=== PATIENT | female | born 1955 | race Caucasian/White ===

== ENCOUNTER 2017-01-16 12:07 | Inpatient (IN) | payer MEDICARE, MEDICAID ==
--- NOTE | 2017-01-16 12:14 | ED Physician Chart ---
Chief Complaint/HPI - Patient Information Date Seen:: 01/16/17 Time Seen:: 12:14 Chief Complaint:: Constipated for about 5 days. History of Present Illness:: Brought in by caregiver Aiden for the above reason. Pt is not in distress and denies any abdominal pain at the present. Pt has h/o mental retardation. She does not cooperate fully; thus, H & P are limited. Allergies:: Allergies Allergy/AdvReac Type Severity Reaction Status Date / Time No Known Allergies Allergy Verified 06/10/16 17:34 Vitals:: see Nurse Note. Historian:: Patient, Medical Records (from pt's assisted.), Other (caregiver Aiden) Family MD/PCP:: Dr. Weiss. LMP:: Postmenopausal Review:: Nurse's Note Reviewed, Transfer documents Reviewed Review of Systems - Review of Systems General/Constitutional: Other (Pt does not cooperate for ROS.) Past Medical History - Past Medical History Past Medical History: Seizures, Dementia Family History: Other (Pt does not cooperate to provide info on FHx.) Social History: Other (Pt does not cooperate to provide info on SHx.) Surgical History: other (Pt does not cooperate to provide info on Surgical Hx.) Psychiatricy History: Dementia Medication: Reviewed Family Medical History - Family Member Mother History Unknown: Yes Physical Exam - Physical Examination General/Constitutional: Awake, Well-developed, well-nourished, Alert, No distress, Non-toxic appearing Other Gen/Cons comments:: Breathes comfortably. Responds to voice and tactile stimuli. Head: Atraumatic Eyes: Lids, conjuctiva normal, PERRL, EOMI Skin: Nl inspection, No rash, No skin lesions, No ecchymosis, Well hydrated, No lymphadenopathy Neck: Nontender, Full ROM w/o pain, No JVD, No nuchal rigidity, No mass, No stridor Respiratory: Nl effort/Exclusion, Clear to Auscultation, No Wheeze/Rhonchi/Rales Cardio Vascular: RRR, No murmur, gallop, rubs, NL S1 S2 GI: No tenderness/rebounding/guarding, No organomegaly, No hernia, Normal BS's, No mass/bruits, No McBurney tenderness Other GI comments:: Obese but soft. Vague discomfort in lower abdomen with deep palpation. Rectal exam performed in the presence of female nurse Blanca. Large quantity of yellow hard stool in rectum. No mass or other abnormality. Extremities: No edema Other Neuro/Psych comments:: Alert and responsive to voice and tactile stimuli. Spontaneous movements noticed in all 4 extremities. Pt does not cooperate for full neurological exam. Misc: normal gait, Normal back, No paraspinal tenderness Labs/Radiology/EKG Results - Lab Results Results: Laboratory Tests 01/16/17 01/16/17 01/16/17 17:20 17:20 17:20 WBC 7.8 D RBC 3.06 L Hgb 10.1 L Hct 29.6 L MCV 96.9 MCH 32.9 H MCHC Differential 33.9 RDW 12.8 Plt Count 247 MPV 8.6 Neutrophils % 76.6 Lymphocytes % 16.5 L Monocytes % 5.8 Eosinophils % 0.9 Basophils % 0.2 PT 11.0 INR 1.06 PTT (Actin FS) 22.3 L Sodium 131 L Potassium 4.0 Chloride 100 Carbon Dioxide 21.3 Anion Gap 13.7 BUN 6 L Creatinine 0.8 Est GFR ( Amer) > 60.0 Est GFR (Non-Af Amer) > 60.0 BUN/Creatinine Ratio 7.5 Glucose 111 H Calcium 9.1 Total Bilirubin 0.3 AST 15 ALT 8 Alkaline Phosphatase 107 H Total Protein 6.4 Albumin 3.6 L Globulin 2.8 Albumin/Globulin Ratio 1.3 Amylase 18 L Lipase 54 Urine Source Urine Color Urine Clarity Urine pH Ur Specific [place] Urine Protein Urine Glucose (UA) Urine Ketones Urine Blood Urine Nitrate Urine Bilirubin Urine Urobilinogen Ur Leukocyte Esterase Urine RBC Urine WBC Ur Epithelial Cells Urine Bacteria 01/16/17 17:40 WBC RBC Hgb Hct MCV MCH MCHC Differential RDW Plt Count MPV Neutrophils % Lymphocytes % Monocytes % Eosinophils % Basophils % PT INR PTT (Actin FS) Sodium Potassium Chloride Carbon Dioxide Anion Gap BUN Creatinine Est GFR ( Amer) Est GFR (Non-Af Amer) BUN/Creatinine Ratio Glucose Calcium Total Bilirubin AST ALT Alkaline Phosphatase Total Protein Albumin Globulin Albumin/Globulin Ratio Amylase Lipase Urine Source CLEAN C Urine Color YELLOW Urine Clarity CLEAR Urine pH 7.0 Ur Specific [place] 1.015 Urine Protein NEGATIVE Urine Glucose (UA) NEGATIVE Urine Ketones NEGATIVE Urine Blood SMALL H Urine Nitrate NEGATIVE Urine Bilirubin NEGATIVE Urine Urobilinogen 0.2 Ur Leukocyte Esterase NEGATIVE Urine RBC 5-10 H Urine WBC 0-2 Ur Epithelial Cells OCCASIONAL Urine Bacteria FEW - Radiology Results Results: Acute abdominal series: Based on my interpretation, a lot of stool. Few air fluid levels c/w ileus. No acute obstruction or perforation. Official report is pending. ED Septic Shock - . Is Septic Shock (SBP<90, OR Lactate>4 mmol\L) present?: No Reassessment (Disposition) - Reassessment Reassessment:: 1705 Pt has been repeatedly evaluated. Pt has had good bowel movements but still has abdominal pain diffusely. Will do abdominal series and lab studies. 2029 Pt remains stable. Her abdominal pain has subsided. Remaining lab and X- rays just became available. Case was discussed with Dr. Haegn with pertinent H & P, lab, and radiological findings reviewed. Pt is to be admitted to [facility] under his care. Reassessment Condition:: Improved - Diagnosis Diagnosis:: Fecal impaction, r/o early bowel obstruction, stable. h/o dementia. Stable. h/o seizure disorder. Stable. Mild anemia. Stable Mild hyperglycemia. Stable. Mild microscopic hematuria. Stable. - Patient Disposition Admitted to:: Med/Surg Admitting Medical Physician:: Gerardo Hagen Time:: 20:35 Condition at Disposition:: Stable, Improved ED Discharge Plan - Patient Disposition Admit/Discharge/Transfer: Acute Care w/in this hosp
[2017-01-16] MEDS ORDERED: Fleet Enema 135 mL RC ONE ×2 (12:33→15:15)
[2017-01-16 17:27] LABS: % BASOPHILS 0.2 % (0.0-2.0); % EOSINOPHILS 0.9 % (0.0-5.0); % LYMPHOCYTES 16.5 % (20.0-50.0); % MONOCYTES 5.8 % (2.0-10.0); % NEUTROPHILS 76.6 % (40.0-80.0); HEMATOCRIT 29.6 % (35.0-45.0); HEMOGLOBIN 10.1 gm/dL (11.7-15.5); MEAN CELL VOLUME 96.9 fl (81-100); MEAN CORPUSCULAR HEMOGLOBIN 32.9 pg (27.0-31.0); MEAN CORPUSCULAR HGB CONC 33.9 pg (28.0-36.0); MEAN PLATELET VOLUME 8.6 fl; NEUTROPHILE ABSOLUTE 5.9 Th/cmm (1.8-8.0); PLATELET COUNT 247 Th/cmm (150-400); RED BLOOD COUNT 3.06 Mil/cmm (3.80-5.10); RED CELL DISTRIBUTION WIDTH 12.8 % (11.5-20.0)
[2017-01-16 17:29] LABS: WHITE BLOOD COUNT 7.8 Th/cmm (4.8-10.8)
[2017-01-16 17:38] LABS: INR 1.06 (0.5-1.4)
[2017-01-16 17:42] LABS: ALB/GLOB RATIO 1.3 (1.0-1.8); ALKALINE PHOSPHATASE 107 U/L (34-104); AMYLASE SERUM 18 U/L (29-103); ANION GAP 13.7 (7.0-16.0); BILIRUBIN,TOTAL 0.3 mg/dL (0.3-1.0); BUN - UREA NITROGEN 6 mg/dL (7-25); BUN/CREATININE RATIO 7.5; CALCIUM SERUM 9.1 mg/dL (8.6-10.3); CARBON DIOXIDE 21.3 mEq/L (21.0-31.0); CHLORIDE 100 mEq/L (98-107); CREATININE - SERUM 0.8 mg/dL (0.6-1.2); GLUCOSE 111 mg/dL (70-105); LIPASE 54 U/L (11-82); SGOT 15 U/L (13-39); SGPT/ALT 8 U/L (7-52); SODIUM SERUM 131 mEq/L (136-145)
[2017-01-16 17:54] LABS: URINE BILIRUBIN NEGATIVE (NEGATIVE); URINE BLOOD SMALL (NEGATIVE); URINE COLOR YELLOW; URINE GLUCOSE (UA) NEGATIVE (NEGATIVE); URINE KETONE NEGATIVE (NEGATIVE); URINE PROTEIN NEGATIVE (NEGATIVE); URINE UROBILINOGEN 0.2 E.U./dL (0.2 - 1.0)
[2017-01-16 17:55] LABS: URINE BACTERIA FEW /hpf (NONE SEEN); URINE EPITHELIAL CELLS OCCASIONAL /lpf (FEW); URINE WBC 0-2 /hpf (0-5)
--- NOTE | 2017-01-16 20:52 | Admit Criteria Form ---
Admit Criteria Forms - Admit Criteria Diagnosis: ABDOMINAL PAIN Clinical Indications for Admission to Inpatient Care (Place 'X' for any and all applicable criteria): Admission is indicated for ANY ONE of the following(1)(2)(3)(4)(5): [X]I. Inpatient admission required rather than observation care (Also use Abdominal Pain: Observation Care, as appropriate) because of ANY ONE of the following: [ ]a) Severe pain requiring acute inpatient management [X]b) Identification of etiology/finding that requires inpatient care (eg, aortic dissection, free air) [ ]c) Absent bowel sounds with complete ileus(6) [ ]d) Suspected toxic megacolon [ ]e) Severe electrolyte abnormalities requiring inpatient care [ ]f) High fever or infection requiring inpatient admission as indicated by ANY ONE of following(7)(8): [ ] i) Appropriate outpatient or observational care antimicrobial treatment unavailable, not effective, or not feasible [ ] ii) Documented bacteremia [ ] iii) Temperature > 104.9 degrees F (oral) [ ] iv) T >103.1 F (oral) or < 96.8 F(rectal) that does not respond to all emergency treatment measures [ ]g) Signs of intestinal obstruction [B] [ ]h) Hemodynamic instability [ ]i) IV fluid to replace significant ongoing losses (greater than 3 L/m2 per day) (12)(13) [ ]j) Percutaneous or open drainage (eg, abscess, biliary tract ) procedures [ ]k) Parenteral nutrition regimen that must be implemented on inpatient basis [ ]l) Other condition,treatment or monitoring requiring inpatient admission. [ ]II. Peritoneal signs present [ ]III. Surgery needed that cannot be performed on an ambulatory basis. [ ]IV. Evaluation requires patient to not eat or drink for extended period ( eg, more than 24 hours). [ ]V. Contraindications and/or Inappropriate clinical situations for Observational Care in patients with abdominal pain, when ANY ONE of the following is required: [ ]a) Thorough evaluation is required to prevent catastrophic events due to delays in diagnosing (e.g.Mesenteric ischemia) 1,3 [ ]b) Patient with severe pathology or with chronic symptoms unlikely to improve in the ED stay (3) [ ]. General contraindications and/or Inappropriate clinical situations for Observational Care in patients with abdominal pain, when ANY ONE of the following is required: [ ]a) Prediction of prolongation of LOS based on ANY ONE of the following may be considered as a contraindication for observational care 2, 3, 4, 5, 6, 7, 8, 9, 10, 11 [ ]i) Age > 65 yrs. [ ]ii) Patient arriving by ambulance [ ]iii) Patient with high acuity [ ]iv) Patient requiring vital sign monitoring [ ]v) Patient on IV medication [ ]b) Systolic blood pressures 180mmHg 3,12 [ ]c) Patient with altered mental status including delirium and other alteration of consciousness, (3) [ ]d) Patient whose discharge disposition will be to a shelter home or rehabilitation home should not be managed in Emergency Department Observation Unit. CMS rule requires 3 days hospital stay before such placement.3,13 [ ]e) Patient with failure to thrive due to broad array of etiologies 3,16,17 [ ]f) Inability to ambulate 3,14 Extended stay beyond goal length of stay may be needed for(2)(3): [ ]a) Persistent abdominal pain with suspected intra-abdominal process [ ]b) Diagnosed condition requiring continued stay (e.g., pancreatitis, complicated diverticulitis) [ ]c) Surgery (e.g., colectomy) The original [facility] content created by [employer] has been revised. The portions of the content which have been revised are identified through the use of italic text or in bold, and [employer] has neither reviewed nor approved the modified material.All other unmodified content is copyright [facility] [employer]. Please see references footnoted in the original [facility] edition 2016 Admit Criteria Met?: Yes
[2017-01-16] MEDS ORDERED: Haldol Oral Sol.(concentrate) 10 mg/5 mL Udc PO PRN (21:39)
[2017-01-16] MEDS ORDERED: Lactulose 10 Gm/15 mL 30mL UDC PO PRN (22:15)
[2017-01-16] MEDS: Sodium Chloride 0.9% 1,000 ML IV SCH (22:28)
[2017-01-17 03:32] VITALS: BP 130/70
[2017-01-17 05:50] LABS: % BASOPHILS 1.4 % (0.0-2.0); % EOSINOPHILS 0.6 % (0.0-5.0); % LYMPHOCYTES 12.3 % (20.0-50.0); % MONOCYTES 7.4 % (2.0-10.0); % NEUTROPHILS 78.3 % (40.0-80.0); HEMATOCRIT 29.6 % (35.0-45.0); HEMOGLOBIN 10.1 gm/dL (11.7-15.5); MEAN CELL VOLUME 96.7 fl (81-100); MEAN CORPUSCULAR HEMOGLOBIN 33.1 pg (27.0-31.0); MEAN CORPUSCULAR HGB CONC 34.2 pg (28.0-36.0); MEAN PLATELET VOLUME 8.8 fl; NEUTROPHILE ABSOLUTE 5.9 Th/cmm (1.8-8.0); PLATELET COUNT 222 Th/cmm (150-400); RED BLOOD COUNT 3.06 Mil/cmm (3.80-5.10); RED CELL DISTRIBUTION WIDTH 12.9 % (11.5-20.0); WHITE BLOOD COUNT 7.4 Th/cmm (4.8-10.8)
[2017-01-17 06:29] LABS: ALB/GLOB RATIO 1.2 (1.0-1.8); ALKALINE PHOSPHATASE 98 U/L (34-104); ANION GAP 12.5 (7.0-16.0); BILIRUBIN,TOTAL 0.4 mg/dL (0.3-1.0); BUN - UREA NITROGEN 8 mg/dL (7-25); CALCIUM SERUM 8.5 mg/dL (8.6-10.3); CARBON DIOXIDE 21.7 mEq/L (21.0-31.0); CHLORIDE 105 mEq/L (98-107); CREATININE - SERUM 0.8 mg/dL (0.6-1.2); GLUCOSE 87 mg/dL (70-105); POTASSIUM SERUM 4.2 mEq/L (3.5-5.1); SGOT 16 U/L (13-39); SGPT/ALT 7 U/L (7-52); SODIUM SERUM 135 mEq/L (136-145)
[2017-01-17] MEDS ORDERED: Pantoprazole 40 mg EC Tab PO SCH (07:30)
--- NOTE | 2017-01-17 08:43 | General Progress Note ---
Subjective - Review of Systems Service Date: 01/17/17 Subjective: Confused Objective - Results Result Diagrams: 01/17/17 05:05 01/17/17 05:05 Recent Labs: Laboratory Last Values WBC 7.4 Th/cmm (4.8-10.8) 01/17/17 05:05 RBC 3.06 Mil/cmm (3.80-5.10) L 01/17/17 05:05 Hgb 10.1 gm/dL (11.7-15.5) L 01/17/17 05:05 Hct 29.6 % (35.0-45.0) L 01/17/17 05:05 MCV 96.7 fl (81-100) 01/17/17 05:05 MCH 33.1 pg (27.0-31.0) H 01/17/17 05:05 MCHC Differential 34.2 pg (28.0-36.0) 01/17/17 05:05 RDW 12.9 % (11.5-20.0) 01/17/17 05:05 Plt Count 222 Th/cmm (150-400) 01/17/17 05:05 MPV 8.8 fl 01/17/17 05:05 Neutrophils % 78.3 % (40.0-80.0) 01/17/17 05:05 Lymphocytes % 12.3 % (20.0-50.0) L 01/17/17 05:05 Monocytes % 7.4 % (2.0-10.0) 01/17/17 05:05 Eosinophils % 0.6 % (0.0-5.0) 01/17/17 05:05 Basophils % 1.4 % (0.0-2.0) 01/17/17 05:05 PT 11.0 SECONDS (9.5-11.5) 01/16/17 17:20 INR 1.06 (0.5-1.4) 01/16/17 17:20 PTT (Actin FS) 22.3 SECONDS (26.0-38.0) L 01/16/17 17:20 Sodium 135 mEq/L (136-145) L 01/17/17 05:05 Potassium 4.2 mEq/L (3.5-5.1) 01/17/17 05:05 Chloride 105 mEq/L (98-107) 01/17/17 05:05 Carbon Dioxide 21.7 mEq/L (21.0-31.0) 01/17/17 05:05 Anion Gap 12.5 (7.0-16.0) 01/17/17 05:05 BUN 8 mg/dL (7-25) 01/17/17 05:05 Creatinine 0.8 mg/dL (0.6-1.2) 01/17/17 05:05 Est GFR ( Amer) > 60.0 ml/min (>90) 01/17/17 05:05 Est GFR (Non-Af Amer) > 60.0 ml/min 01/17/17 05:05 BUN/Creatinine Ratio 10.0 01/17/17 05:05 Glucose 87 mg/dL (70-105) 01/17/17 05:05 Calcium 8.5 mg/dL (8.6-10.3) L 01/17/17 05:05 Total Bilirubin 0.4 mg/dL (0.3-1.0) 01/17/17 05:05 AST 16 U/L (13-39) 01/17/17 05:05 ALT 7 U/L (7-52) 01/17/17 05:05 Alkaline Phosphatase 98 U/L (34-104) 01/17/17 05:05 Total Protein 5.6 gm/dL (6.0-8.3) L 01/17/17 05:05 Albumin 3.1 gm/dL (3.7-5.3) L 01/17/17 05:05 Globulin 2.5 gm/dL 01/17/17 05:05 Albumin/Globulin Ratio 1.2 (1.0-1.8) 01/17/17 05:05 Amylase 18 U/L (29-103) L 01/16/17 17:20 Lipase 54 U/L (11-82) 01/16/17 17:20 Urine Source CLEAN C 01/16/17 17:40 Urine Color YELLOW 01/16/17 17:40 Urine Clarity CLEAR (CLEAR) 01/16/17 17:40 Urine pH 7.0 01/16/17 17:40 Ur Specific [place] 1.015 (1.005-1.030) 01/16/17 17:40 Urine Protein NEGATIVE mg/dL (NEGATIVE) 01/16/17 17:40 Urine Glucose (UA) NEGATIVE mg/dL (NEGATIVE) 01/16/17 17:40 Urine Ketones NEGATIVE mg/dL (NEGATIVE) 01/16/17 17:40 Urine Blood SMALL (NEGATIVE) H 01/16/17 17:40 Urine Nitrate NEGATIVE (NEGATIVE) 01/16/17 17:40 Urine Bilirubin NEGATIVE (NEGATIVE) 01/16/17 17:40 Urine Urobilinogen 0.2 E.U./dL (0.2 - 1.0) 01/16/17 17:40 Ur Leukocyte Esterase NEGATIVE (NEGATIVE) 01/16/17 17:40 Urine RBC 5-10 /hpf (0-5) H 01/16/17 17:40 Urine WBC 0-2 /hpf (0-5) 01/16/17 17:40 Ur Epithelial Cells OCCASIONAL /lpf (FEW) 01/16/17 17:40 Urine Bacteria FEW /hpf (NONE SEEN) 01/16/17 17:40 - Physical Exam Vitals and I&O: Vital Signs Temp 99.1 F 01/17/17 03:49 Pulse 102 01/17/17 03:49 Resp 20 01/17/17 03:49 BP 135/71 01/17/17 04:30 Pulse Ox 98 01/17/17 03:49 Intake & Output 01/16/17 01/17/17 01/17/17 18:59 06:59 18:59 Other: # Voids 3 # Bowel Movements 3 Stool Characteristics Liquid Active Medications: Current Medications Acetaminophen (Tylenol) 650 mg PO Q6H PRN PRN Reason: Pain or Fever >101 Stop: 03/17/17 21:18 Cyanocobalamin (Vitamin B12) 1,000 mcg PO DAILY [facility] Stop: 03/18/17 08:59 Sodium Chloride (Nacl 0.9%) 1,000 mls @ 75 mls/hr IV .[id number] [place] Stop: 03/17/17 21:18 Last Admin: 01/16/17 22:28 Dose: 75 mls/hr Influenza Virus Vaccine (Fluarix) 0.5 ml IM .ONCE ONE Stop: 01/17/17 10:55 Ketorolac Tromethamine (Toradol) 30 mg IVP Q6HR PRN PRN Reason: Pain (Moderate) Stop: 03/17/17 21:20 Lactulose (Cephulac) 20 gm PO BID PRN PRN Reason: Constipation Stop: 03/17/17 22:14 Levetiracetam (Keppra) 500 mg PO BID [facility] Stop: 03/18/17 08:59 Miscellaneous (Fluticasone/Salmeterol [Advair 250-50 Diskus]) 1 each IH BID [facility] Stop: 03/18/17 08:59 Miscellaneous (Mag Hydrox/Al Hydrox/Simeth [Antacid Anti-Gas Liquid]) 5 ml PO BID [facility] Stop: 03/18/17 08:59 Multivitamins/Vitamin C (Theragran) 1 tab PO DAILY [facility] Stop: 03/18/17 08:59 Olanzapine (Zyprexa) 10 mg PO HS [place] PRN Reason: Protocol Stop: 03/18/17 20:59 Ondansetron HCl (Zofran) 4 mg IV Q6H PRN PRN Reason: Nausea / Vomiting Stop: 03/17/17 21:18 Pantoprazole Sodium (Protonix) 40 mg PO QDAC [facility] Stop: 03/18/17 07:29 Pneumococcal Polyvalent Vaccine (Pneumovax) 0.5 ml IM .ONCE ONE Stop: 01/17/17 10:55 Tramadol HCl (Ultram) 50 mg PO BID [facility] Stop: 03/18/17 08:59 General: Alert, Other (Confused) HEENT: Atraumatic Neck: Supple Cardiovascular: Regular rate Lungs: Clear to auscultation Abdomen: Other (BS present, soft, pain at palpation in left colon) Extremities: Other (No edema) Neurological: Other (Non ambulatory) Skin: Other Psych/Mental Status: Other (Confused) - Procedures Procedures: Procedures Procedure Code Date CLOSURE SKIN & SUBCUTANEOUS NEC 86.59 11/28/05 COLONOSCOPY 45.23 12/06/96 DIAGNOSTIC COLONOSCOPY 47462 12/06/96 DIAGNOSTIC SIGMOIDOSCOPY 57963 04/21/98 EGD DIAGNOSTIC BRUSH WASH 83510 06/10/16 ELECTROCARDIOGRAPH MONIT 89.54 12/10/95 HEMORRHOIDECTOMY 49.46 04/21/98 INSPECTION OF UPPER INTESTINAL TRACT, ENDO [id number] 06/10/16 LINEAR REP LID LACER 08.81 07/04/14 NEBULIZER THERAPY 93.94 12/10/95 REMOVE INT/EXT HEM 1 GROUP 13030 04/21/98 RIGID PROCTOSIGMOIDOSCOPY 48.23 04/21/98 RPR S/N/AX/GEN/TRNK2.6-7.5CM 30778 11/28/05 TETANUS TOXOID ADMINIST 99.38 07/04/14 Assessment/Plan - Problem List Patient Problems: All Active Problems Anemia (Acute) D64.9 Dizziness (Acute) R42 Hyposmolality and/or hyponatremia (Acute) E87.1 Labyrinthitis (Acute) H83.09 NAUSEA AND VOMITING (Acute 06/10/16) - Assessment Assessment: Patient is awake, calm, confused not oriented. Patient already have 3 bowel movement during night. Dx: SBO vs [place], MR, dementia, anemia, hyponatremia. - Plan Plan: Patient in NS, will change to clear liquid diet, KUB is requested.
[2017-01-17] MEDS ORDERED: AL HYDROX PO SCH (09:00)
[2017-01-17] MEDS ORDERED: MAG HYDROX PO SCH (09:00)
[2017-01-17] MEDS ORDERED: SIMETH PO SCH (09:00)
[2017-01-17] MEDS ORDERED: FLUTICASONE IH SCH (09:00)
[2017-01-17] MEDS ORDERED: SALMETEROL IH SCH (09:00)
[2017-01-17] MEDS: Multivitamin Tab PO SCH (09:03)
--- NOTE | 2017-01-17 09:55 | Diagnostic Imaging Report ---
Abdominal series (2 views) HISTORY: Pain The exam demonstrates stool-filled nondilated large bowel with an otherwise nonspecific appearance. Density noted in the lower pelvis that may be related to distended urinary bladder. IMPRESSION: 1. Stool-filled nondilated large bowel to an otherwise nonspecific appearance 2. Density in the pelvic region that may be associated with a distended urinary bladder. Clinical correlation needed.
[2017-01-17] MEDS ORDERED: Diatrizoate Meglumine/Diatri 30 mL Sol RC ONE (10:14)
--- NOTE | 2017-01-17 10:53 | History & Physical ---
CHIEF COMPLAINT: Intestinal constipation. HISTORY OF PRESENT ILLNESS: This is the case of a 61-year-old white female who has a history of mental retardation. The patient is brought by the caregiver stating that for 5 days, the patient has been not able to evacuate. The patient was brought to Emergency Room for evaluation and treatment. During evaluation in the ER, abdominal x-rays were done and by emergency doctor it was found that the patient has possible SBO versus ileus paralytics. The patient was admitted for further treatment. PAST MEDICAL HISTORY: The patient has past medical history of seizures and dementia. SOCIAL HISTORY: The patient is a permanent resident of a [facility]. It is not clear at this moment ____ from the [facility] or home. PAST SURGICAL HISTORY: Not available. PSYCHIATRIC HISTORY: Dementia. FAMILY HISTORY: Unremarkable. MEDICATIONS: Reviewed. REVIEW OF SYSTEMS: Information was not obtained secondary to the patient's mental condition. PHYSICAL EXAMINATION: GENERAL: Does reveal a fairly nourished and developed white female, awake, alert, in no acute distress. The patient is not able to respond or answer in the right way. HEENT: Head is atraumatic and normocephalic. Eyes: Pupils reactive to light. Nose: No evidence of nasal obstruction. Ears: No evidence of any discharge. Mouth: Fairly kept. LUNGS: Bilateral air entry. HEART: Regular and rhythmic. ABDOMEN: Soft, some tenderness. Bowel sound is decreased. EXTREMITIES: No edema. NEUROLOGICAL: The patient is awake, alert, confused, not oriented. Neurological examination was not completed secondary to the patient's mental condition. IMPRESSION: 1. Small bowel obstruction versus ileus paralytics. 2. Anemia. 3. Hyponatremia. 4. Dementia. 5. Seizure disorder. PLAN: 1. The patient will be admitted in the Medical Surgical Floor. 2. IV normal saline. 3. Continue on home medications. 4. NPO. 5. Consult with GI. 6. CBC, CMP at a.m. JOB# [id number]
[2017-01-17] MEDS ORDERED: Influenza Vaccine 0.5 mL Syr IM ONE (10:54)
[2017-01-17] MEDS ORDERED: Pneumococcal Vaccine 0.5 mL Vial IM ONE (10:54)
[2017-01-17] MEDS: Sodium Chloride 0.9% 1,000 ML IV SCH (11:52)
--- NOTE | 2017-01-17 16:20 | Diagnostic Imaging Report ---
KUB abdominal film (portable) HISTORY: Pain Exam limited due to difficulty in patient positioning. The periphery of the right abdomen is off the [id number]. Distended loops of stool-filled large bowel noted. Increased density in the lower pelvis may be associated with a distended urinary bladder. Old pelvic fractures noted. IMPRESSION: 1. Distended stool-filled large bowel 2. Old pelvic fractures 3. Increased density in the lower pelvis that may be associated with a distended urinary bladder.
--- NOTE | 2017-01-17 16:20 | Diagnostic Imaging Report ---
CT scan of the abdomen and pelvis without intravenous contrast HISTORY pain Total DLP equals 392 CTDI equals Axial sections were obtained from the xiphoid process down to the pubic symphysis. Limited sections below the diaphragm demonstrate a relatively large retrocardiac hiatal hernia with the gastric fundus above the diaphragm. The liver exhibits a normal size with a homogeneous parenchyma. No focal lesions. The spleen appears normal. No focal abdomen is seen in the region of the pancreas. Subtle punctate nonobstructing bilateral renal calculi are seen. The exam demonstrates rather markedly dilated stool-filled large bowel as well as a distended stool-filled rectum. Findings are consistent with changes of constipation. Nondilated small bowel is seen. The remainder of the pelvis demonstrates preservation of normal fat planes. No abnormal soft tissue masses or abnormal fluid collections. Old left sacral fracture along with old fractures involving the lower pelvis also noted. Degenerative changes throughout the spine with partial compression involving the body of L2. IMPRESSION: 1. Dilated distended stool-filled large bowel along with a distended thick-walled stool-filled rectum. Findings are consistent with changes of constipation. 2. Relatively large hiatal hernia with gastric fundus above the diaphragm 3. Chronic pulmonary infiltrate within the left lower lobe unchanged from a prior study of 06/10/2016 4. Old pelvic fractures including findings consistent with old left sacral fracture. 5. Degenerative changes throughout the spine with partial compression involving the body of L2.
--- NOTE | 2017-01-17 22:29 | Consultation ---
REFERRING PHYSICIAN: Dr. Hagen. REASON FOR CONSULTATION: Abdominal distention. HISTORY OF PRESENT ILLNESS: A 61-year-old female with mentally challenged capacity. The patient was brought to the hospital because of lack of bowel movement and being constipation. She had mild abdominal distention. She, at this time, appears comfortable, having bowel movements. PAST MEDICAL HISTORY: Mental retardation, dementia, seizure disorder. PAST SURGICAL HISTORY: None to add recently. FAMILY HISTORY: Noncontributory. SOCIAL HISTORY: Resident of [facility] Facility. ALLERGIES: LACTOSE. CURRENT MEDICATIONS: Tylenol, vitamin B12, Toradol, lactulose, Keppra, Zyprexa, Zofran, Protonix, Tramadol. REVIEW OF SYSTEMS: Unobtainable. PHYSICAL EXAMINATION: VITAL SIGNS: Temperature 99.1, breathing 20, pulse of 102, blood pressure 135/71, satting 98%. GENERAL: In no apparent distress. EYES: Anicteric, normal conjunctivae. HEENT: Normocephalic, atraumatic. Moist mucous membranes. NECK: Soft, supple. CHEST: Clear. No effort. CARDIOVASCULAR: Regular rate and rhythm. ABDOMEN: Soft, nontender, nondistended, normal bowel sounds. SKIN: Warm, dry. EXTREMITIES: Reveal no cyanosis. LABORATORY DATA: Show white count 7.4, hemoglobin 10.1, platelets of 222. INR is 1.06. LFTs were within normal limits. Lipase within normal limits. KUB showed stool filled nondilated large bowel. IMPRESSION: A 61-year-old female with mild abdominal distention, seems to have improved with bowel movements. X-rays suggested constipation, which could be a ____dragging force. Further imaging studies can be done such as CT abdomen and pelvis to rule out any further obstruction. PLAN: 1. CT abdomen and pelvis. 2. Continue laxatives. 3. Continue supportive care. Thank you for allowing me to participate. Please call me if any questions. JOB# [id number]
[2017-01-18 05:31] LABS: % EOSINOPHILS 0.4 % (0.0-5.0); % LYMPHOCYTES 12.2 % (20.0-50.0); % MONOCYTES 9.4 % (2.0-10.0); HEMATOCRIT 29.5 % (35.0-45.0); MEAN CELL VOLUME 96.1 fl (81-100); MEAN CORPUSCULAR HEMOGLOBIN 32.7 pg (27.0-31.0); MEAN PLATELET VOLUME 8.6 fl; NEUTROPHILE ABSOLUTE 5.1 Th/cmm (1.8-8.0); PLATELET COUNT 244 Th/cmm (150-400); RED BLOOD COUNT 3.07 Mil/cmm (3.80-5.10); RED CELL DISTRIBUTION WIDTH 12.9 % (11.5-20.0); WHITE BLOOD COUNT 6.5 Th/cmm (4.8-10.8)
[2017-01-18 05:49] LABS: ALB/GLOB RATIO 1.2 (1.0-1.8); ALKALINE PHOSPHATASE 86 U/L (34-104); ANION GAP 10.1 (7.0-16.0); BILIRUBIN,TOTAL 0.3 mg/dL (0.3-1.0); BUN - UREA NITROGEN 12 mg/dL (7-25); BUN/CREATININE RATIO 17.1; CALCIUM SERUM 8.3 mg/dL (8.6-10.3); CARBON DIOXIDE 22.6 mEq/L (21.0-31.0); CHLORIDE 107 mEq/L (98-107); CREATININE - SERUM 0.7 mg/dL (0.6-1.2); GLUCOSE 106 mg/dL (70-105); POTASSIUM SERUM 3.7 mEq/L (3.5-5.1); SGOT 12 U/L (13-39); SGPT/ALT 7 U/L (7-52); SODIUM SERUM 136 mEq/L (136-145)
--- NOTE | 2017-01-18 08:22 | General Progress Note ---
Subjective - Review of Systems Service Date: 01/18/17 Subjective: Confused Objective - Results Result Diagrams: 01/18/17 05:10 01/18/17 05:10 Recent Labs: Laboratory Last Values WBC 6.5 Th/cmm (4.8-10.8) 01/18/17 05:10 RBC 3.07 Mil/cmm (3.80-5.10) L 01/18/17 05:10 Hgb 10.0 gm/dL (11.7-15.5) L 01/18/17 05:10 Hct 29.5 % (35.0-45.0) L 01/18/17 05:10 MCV 96.1 fl (81-100) 01/18/17 05:10 MCH 32.7 pg (27.0-31.0) H 01/18/17 05:10 MCHC Differential 34.0 pg (28.0-36.0) 01/18/17 05:10 RDW 12.9 % (11.5-20.0) 01/18/17 05:10 Plt Count 244 Th/cmm (150-400) 01/18/17 05:10 MPV 8.6 fl 01/18/17 05:10 Neutrophils % 78.0 % (40.0-80.0) 01/18/17 05:10 Lymphocytes % 12.2 % (20.0-50.0) L 01/18/17 05:10 Monocytes % 9.4 % (2.0-10.0) 01/18/17 05:10 Eosinophils % 0.4 % (0.0-5.0) 01/18/17 05:10 Basophils % 0.0 % (0.0-2.0) 01/18/17 05:10 PT 11.0 SECONDS (9.5-11.5) 01/16/17 17:20 INR 1.06 (0.5-1.4) 01/16/17 17:20 PTT (Actin FS) 22.3 SECONDS (26.0-38.0) L 01/16/17 17:20 Sodium 136 mEq/L (136-145) 01/18/17 05:10 Potassium 3.7 mEq/L (3.5-5.1) 01/18/17 05:10 Chloride 107 mEq/L (98-107) 01/18/17 05:10 Carbon Dioxide 22.6 mEq/L (21.0-31.0) 01/18/17 05:10 Anion Gap 10.1 (7.0-16.0) 01/18/17 05:10 BUN 12 mg/dL (7-25) 01/18/17 05:10 Creatinine 0.7 mg/dL (0.6-1.2) 01/18/17 05:10 Est GFR ( Amer) > 60.0 ml/min (>90) 01/18/17 05:10 Est GFR (Non-Af Amer) > 60.0 ml/min 01/18/17 05:10 BUN/Creatinine Ratio 17.1 01/18/17 05:10 Glucose 106 mg/dL (70-105) H 01/18/17 05:10 Calcium 8.3 mg/dL (8.6-10.3) L 01/18/17 05:10 Total Bilirubin 0.3 mg/dL (0.3-1.0) 01/18/17 05:10 AST 12 U/L (13-39) L 01/18/17 05:10 ALT 7 U/L (7-52) 01/18/17 05:10 Alkaline Phosphatase 86 U/L (34-104) 01/18/17 05:10 Total Protein 5.6 gm/dL (6.0-8.3) L 01/18/17 05:10 Albumin 3.1 gm/dL (3.7-5.3) L 01/18/17 05:10 Globulin 2.5 gm/dL 01/18/17 05:10 Albumin/Globulin Ratio 1.2 (1.0-1.8) 01/18/17 05:10 Amylase 18 U/L (29-103) L 01/16/17 17:20 Lipase 54 U/L (11-82) 01/16/17 17:20 TSH 2.58 uIU/ml (0.34-5.60) 01/17/17 05:05 Urine Source CLEAN C 01/16/17 17:40 Urine Color YELLOW 01/16/17 17:40 Urine Clarity CLEAR (CLEAR) 01/16/17 17:40 Urine pH 7.0 01/16/17 17:40 Ur Specific [place] 1.015 (1.005-1.030) 01/16/17 17:40 Urine Protein NEGATIVE mg/dL (NEGATIVE) 01/16/17 17:40 Urine Glucose (UA) NEGATIVE mg/dL (NEGATIVE) 01/16/17 17:40 Urine Ketones NEGATIVE mg/dL (NEGATIVE) 01/16/17 17:40 Urine Blood SMALL (NEGATIVE) H 01/16/17 17:40 Urine Nitrate NEGATIVE (NEGATIVE) 01/16/17 17:40 Urine Bilirubin NEGATIVE (NEGATIVE) 01/16/17 17:40 Urine Urobilinogen 0.2 E.U./dL (0.2 - 1.0) 01/16/17 17:40 Ur Leukocyte Esterase NEGATIVE (NEGATIVE) 01/16/17 17:40 Urine RBC 5-10 /hpf (0-5) H 01/16/17 17:40 Urine WBC 0-2 /hpf (0-5) 01/16/17 17:40 Ur Epithelial Cells OCCASIONAL /lpf (FEW) 01/16/17 17:40 Urine Bacteria FEW /hpf (NONE SEEN) 01/16/17 17:40 - Physical Exam Vitals and I&O: Vital Signs Temp 100.2 F 01/18/17 00:00 Pulse 125 01/18/17 00:00 Resp 19 01/18/17 00:00 BP 155/95 01/18/17 00:00 Pulse Ox 96 01/18/17 00:00 Intake & Output 01/17/17 01/18/17 01/18/17 18:59 06:59 18:59 Intake Total 1000 Output Total 75 Balance 1000 -75 Intake: Intake, IV Amount 1000 Sodium Chloride 0.9% 1, 1000 000 ml @ 75 mls/hr IV . [id number] [facility] Rx#:[id number] Output: Emesis 75 Other: # Voids 3 3 # Bowel Movements 3 4 Stool Characteristics Liquid Liquid Active Medications: Current Medications Acetaminophen (Tylenol) 650 mg PO Q6H PRN PRN Reason: Pain or Fever >101 Stop: 03/17/17 21:18 Last Admin: 01/17/17 21:10 Dose: 650 mg Cyanocobalamin (Vitamin B12) 1,000 mcg PO DAILY [facility] Stop: 03/18/17 08:59 Last Admin: 01/17/17 09:03 Dose: Not Given Sodium Chloride (Nacl 0.9%) 1,000 mls @ 75 mls/hr IV .[id number] [facility] Stop: 03/17/17 21:18 Last Admin: 01/17/17 11:52 Dose: 75 mls/hr Ketorolac Tromethamine (Toradol) 30 mg IVP Q6HR PRN PRN Reason: Pain (Moderate) Stop: 03/17/17 21:20 Lactulose (Cephulac) 20 gm PO BID PRN PRN Reason: Constipation Stop: 03/17/17 22:14 Levetiracetam (Keppra) 500 mg PO BID [facility] Stop: 03/18/17 08:59 Last Admin: 01/17/17 18:40 Dose: Not Given Miscellaneous (Fluticasone/Salmeterol [Advair 250-50 Diskus]) 1 each IH BID [facility] Stop: 03/18/17 08:59 Miscellaneous (Mag Hydrox/Al Hydrox/Simeth [Antacid Anti-Gas Liquid]) 5 ml PO BID [facility] Stop: 03/18/17 08:59 Multivitamins/Vitamin C (Theragran) 1 tab PO DAILY [facility] Stop: 03/18/17 08:59 Last Admin: 01/17/17 09:03 Dose: Not Given Olanzapine (Zyprexa) 10 mg PO HS [place] PRN Reason: Protocol Stop: 03/18/17 20:59 Ondansetron HCl (Zofran) 4 mg IV Q6H PRN PRN Reason: Nausea / Vomiting Stop: 03/17/17 21:18 Last Admin: 01/17/17 21:11 Dose: 4 mg Pantoprazole Sodium (Protonix) 40 mg IVP BID [facility] Stop: 03/19/17 08:59 Tramadol HCl (Ultram) 50 mg PO BID [facility] Stop: 03/18/17 08:59 Last Admin: 01/17/17 18:40 Dose: Not Given General: Alert, Moderate distress, Other (Confused, not responding to verbal orders) Neck: Supple Cardiovascular: Regular rate Lungs: Clear to auscultation Abdomen: Bowel sounds, Soft, Other (Tender at palpation) Extremities: Other (No edema) Neurological: Other (Non ambulatory) Skin: Other (Warm and dry) Psych/Mental Status: Other (Confused, not oriented) - Procedures Procedures: Procedures Procedure Code Date CLOSURE SKIN & SUBCUTANEOUS NEC 86.59 11/28/05 COLONOSCOPY 45.23 12/06/96 DIAGNOSTIC COLONOSCOPY 86946 12/06/96 DIAGNOSTIC SIGMOIDOSCOPY 05352 04/21/98 EGD DIAGNOSTIC BRUSH WASH 76807 06/10/16 ELECTROCARDIOGRAPH MONIT 89.54 12/10/95 HEMORRHOIDECTOMY 49.46 04/21/98 INSPECTION OF UPPER INTESTINAL TRACT, ENDO [id number] 06/10/16 LINEAR REP LID LACER 08.81 07/04/14 NEBULIZER THERAPY 93.94 12/10/95 REMOVE INT/EXT HEM 1 GROUP 06704 04/21/98 RIGID PROCTOSIGMOIDOSCOPY 48.23 04/21/98 RPR S/N/AX/GEN/TRNK2.6-7.5CM 29213 11/28/05 TETANUS TOXOID ADMINIST 99.38 07/04/14 Assessment/Plan - Problem List Patient Problems: All Active Problems Anemia (Acute) D64.9 Dizziness (Acute) R42 Hyposmolality and/or hyponatremia (Acute) E87.1 Labyrinthitis (Acute) H83.09 NAUSEA AND VOMITING (Acute 06/10/16) - Assessment Assessment: Patient is awake, calm, confused not oriented. Per nurse report patient had vomit coffee ground last night. Patient already have bowel movement during night. Dx: SBO vs Ilium, MR, dementia, anemia, hyponatremia, coffee ground emesis. - Plan Plan: Patient in NS, Today upper endoscopy will be done.
[2017-01-18] MEDS: Sodium Chloride 0.9% 1,000 ML IV SCH (09:11)
[2017-01-18] MEDS: Multivitamin Tab PO SCH (09:42)
[2017-01-18] MEDS ORDERED: Menthol/Zinc Oxide Oint 113gm Tube TP PRN (10:47)
[2017-01-18] MEDS: Menthol/Zinc Oxide Oint 113gm Tube TP SCH ×3 (13:32→21:40)
[2017-01-18] MEDS ORDERED: Midazolam 1mg/ml 2 ml vial IV ONE (16:05)
[2017-01-18] MEDS ORDERED: fentaNYL Citrate 100 mcg/2mL Vial IV ONE (16:05)
--- NOTE | 2017-01-18 21:28 | Operative Report ---
INPATIENT GASTROINTESTINAL PROCEDURE PROCEDURE: EGD with biopsy. REFERRING PHYSICIAN: Dr. Hagen. REASON FOR CONSULTATION: Coffee-ground emesis. CONSENT: Risks, benefits, alternatives, nature, indication, possible outcomes were discussed. Mentioned bleeding, infection, perforation, , disability, cardiopulmonary distress and arrest, missed lesion and cancers, need for surgery. The patient's family expressed understanding and provided informed consent. PREOPERATIVE DIAGNOSES: Coffee ground emesis, upper gastrointestinal bleed. POSTOPERATIVE DIAGNOSIS: Esophagitis. MEDICATIONS: Fentanyl 50 mcg, Versed 3 mg. DESCRIPTION OF PROCEDURE: The patient was placed on left side. Upper gastroscope advanced from mouth and second portion of duodenum. Scope brought back in stomach. Retroflexion view of fundus, cardia, lesser curvature. Scope slowly withdrawn to the esophagus and removed. COMPLICATIONS: None. FINDINGS: 1. GE junction at 30 cm with a distal esophagitis, likely source of coffee-ground emesis. 2. Small to medium hiatal hernia. 3. Normal stomach. 4. Duodenitis, status post biopsy. RECOMMENDATIONS: 1. Continue Protonix. 2. Follow H and H. 3. Follow up on biopsies. 4. May need colonoscopy if none prior. Thank you for allowing me to participate. Please call me if any questions. JOB# [id number]
[2017-01-19] MEDS: Sodium Chloride 0.9% 1,000 ML IV SCH ×2 (01:18→18:01)
[2017-01-19 06:12] LABS: ALB/GLOB RATIO 1.2 (1.0-1.8); ALKALINE PHOSPHATASE 76 U/L (34-104); ANION GAP 9.6 (7.0-16.0); BILIRUBIN,TOTAL 0.3 mg/dL (0.3-1.0); BUN - UREA NITROGEN 9 mg/dL (7-25); CALCIUM SERUM 8.2 mg/dL (8.6-10.3); CARBON DIOXIDE 20.9 mEq/L (21.0-31.0); CHLORIDE 113 mEq/L (98-107); CREATININE - SERUM 0.6 mg/dL (0.6-1.2); GLUCOSE 79 mg/dL (70-105); POTASSIUM SERUM 3.5 mEq/L (3.5-5.1); SGOT 9 U/L (13-39); SGPT/ALT 6 U/L (7-52); SODIUM SERUM 140 mEq/L (136-145)
[2017-01-19 06:14] LABS: % BASOPHILS 1.2 % (0.0-2.0); % LYMPHOCYTES 34.3 % (20.0-50.0); % MONOCYTES 11.1 % (2.0-10.0); % NEUTROPHILS 50.4 % (40.0-80.0); HEMOGLOBIN 8.6 gm/dL (11.7-15.5); MEAN CELL VOLUME 97.6 fl (81-100); MEAN CORPUSCULAR HEMOGLOBIN 32.9 pg (27.0-31.0); MEAN CORPUSCULAR HGB CONC 33.7 pg (28.0-36.0); MEAN PLATELET VOLUME 8.8 fl; NEUTROPHILE ABSOLUTE 1.9 Th/cmm (1.8-8.0); PLATELET COUNT 214 Th/cmm (150-400); RED BLOOD COUNT 2.61 Mil/cmm (3.80-5.10); RED CELL DISTRIBUTION WIDTH 13.1 % (11.5-20.0)
[2017-01-19 06:17] LABS: WHITE BLOOD COUNT 3.7 Th/cmm (4.8-10.8)
[2017-01-19 06:18] LABS: HEMATOCRIT 25.5 % (35.0-45.0)
--- NOTE | 2017-01-19 08:20 | General Progress Note ---
Subjective - Review of Systems Service Date: 01/19/17 Subjective: Confused Objective - Results Result Diagrams: 01/19/17 05:15 01/19/17 05:15 Recent Labs: Laboratory Last Values WBC 3.7 Th/cmm (4.8-10.8) L D 01/19/17 05:15 RBC 2.61 Mil/cmm (3.80-5.10) L 01/19/17 05:15 Hgb 8.6 gm/dL (11.7-15.5) L 01/19/17 05:15 Hct 25.5 % (35.0-45.0) L D 01/19/17 05:15 MCV 97.6 fl (81-100) 01/19/17 05:15 MCH 32.9 pg (27.0-31.0) H 01/19/17 05:15 MCHC Differential 33.7 pg (28.0-36.0) 01/19/17 05:15 RDW 13.1 % (11.5-20.0) 01/19/17 05:15 Plt Count 214 Th/cmm (150-400) 01/19/17 05:15 MPV 8.8 fl 01/19/17 05:15 Neutrophils % 50.4 % (40.0-80.0) 01/19/17 05:15 Lymphocytes % 34.3 % (20.0-50.0) 01/19/17 05:15 Monocytes % 11.1 % (2.0-10.0) H 01/19/17 05:15 Eosinophils % 3.0 % (0.0-5.0) 01/19/17 05:15 Basophils % 1.2 % (0.0-2.0) 01/19/17 05:15 PT 11.0 SECONDS (9.5-11.5) 01/16/17 17:20 INR 1.06 (0.5-1.4) 01/16/17 17:20 PTT (Actin FS) 22.3 SECONDS (26.0-38.0) L 01/16/17 17:20 Sodium 140 mEq/L (136-145) 01/19/17 05:15 Potassium 3.5 mEq/L (3.5-5.1) 01/19/17 05:15 Chloride 113 mEq/L (98-107) H 01/19/17 05:15 Carbon Dioxide 20.9 mEq/L (21.0-31.0) L 01/19/17 05:15 Anion Gap 9.6 (7.0-16.0) 01/19/17 05:15 BUN 9 mg/dL (7-25) 01/19/17 05:15 Creatinine 0.6 mg/dL (0.6-1.2) 01/19/17 05:15 Est GFR ( Amer) > 60.0 ml/min (>90) 01/19/17 05:15 Est GFR (Non-Af Amer) > 60.0 ml/min 01/19/17 05:15 BUN/Creatinine Ratio 15.0 01/19/17 05:15 Glucose 79 mg/dL (70-105) 01/19/17 05:15 Calcium 8.2 mg/dL (8.6-10.3) L 01/19/17 05:15 Total Bilirubin 0.3 mg/dL (0.3-1.0) 01/19/17 05:15 AST 9 U/L (13-39) L 01/19/17 05:15 ALT 6 U/L (7-52) L 01/19/17 05:15 Alkaline Phosphatase 76 U/L (34-104) 01/19/17 05:15 Total Protein 4.9 gm/dL (6.0-8.3) L 01/19/17 05:15 Albumin 2.7 gm/dL (3.7-5.3) L 01/19/17 05:15 Globulin 2.2 gm/dL 01/19/17 05:15 Albumin/Globulin Ratio 1.2 (1.0-1.8) 01/19/17 05:15 Amylase 18 U/L (29-103) L 01/16/17 17:20 Lipase 54 U/L (11-82) 01/16/17 17:20 TSH 2.58 uIU/ml (0.34-5.60) 01/17/17 05:05 Urine Source CLEAN C 01/16/17 17:40 Urine Color YELLOW 01/16/17 17:40 Urine Clarity CLEAR (CLEAR) 01/16/17 17:40 Urine pH 7.0 01/16/17 17:40 Ur Specific [place] 1.015 (1.005-1.030) 01/16/17 17:40 Urine Protein NEGATIVE mg/dL (NEGATIVE) 01/16/17 17:40 Urine Glucose (UA) NEGATIVE mg/dL (NEGATIVE) 01/16/17 17:40 Urine Ketones NEGATIVE mg/dL (NEGATIVE) 01/16/17 17:40 Urine Blood SMALL (NEGATIVE) H 01/16/17 17:40 Urine Nitrate NEGATIVE (NEGATIVE) 01/16/17 17:40 Urine Bilirubin NEGATIVE (NEGATIVE) 01/16/17 17:40 Urine Urobilinogen 0.2 E.U./dL (0.2 - 1.0) 01/16/17 17:40 Ur Leukocyte Esterase NEGATIVE (NEGATIVE) 01/16/17 17:40 Urine RBC 5-10 /hpf (0-5) H 01/16/17 17:40 Urine WBC 0-2 /hpf (0-5) 01/16/17 17:40 Ur Epithelial Cells OCCASIONAL /lpf (FEW) 01/16/17 17:40 Urine Bacteria FEW /hpf (NONE SEEN) 01/16/17 17:40 - Physical Exam Vitals and I&O: Vital Signs Temp 99.2 F 01/19/17 04:01 Pulse 112 01/19/17 04:01 Resp 20 01/19/17 04:01 BP 149/83 01/19/17 00:00 Pulse Ox 100 01/19/17 04:01 Intake & Output 01/18/17 01/19/17 01/19/17 18:59 06:59 18:59 Intake Total 0 1000 Balance 0 1000 Intake: Intake, IV Amount 1000 Sodium Chloride 0.9% 1, 1000 000 ml @ 75 mls/hr IV . [id number] [facility] Rx#:[id number] Oral 0 Other: # Voids 3 Stool Characteristics Liquid Active Medications: Current Medications Acetaminophen (Tylenol) 650 mg PO Q6H PRN PRN Reason: Pain or Fever >101 Stop: 03/17/17 21:18 Last Admin: 01/17/17 21:10 Dose: 650 mg Calamine/Phenol (Calmoseptine) 1 appl TP QID PRN PRN Reason: Skin Irritation Stop: 03/19/17 10:46 Calamine/Phenol (Calmoseptine) 1 appl TP QID [facility] Stop: 03/19/17 12:59 Last Admin: 01/18/17 21:40 Dose: 1 appl Cyanocobalamin (Vitamin B12) 1,000 mcg PO DAILY [facility] Stop: 03/18/17 08:59 Last Admin: 01/18/17 09:41 Dose: Not Given Sodium Chloride (Nacl 0.9%) 1,000 mls @ 75 mls/hr IV .[id number] [facility] Stop: 03/17/17 21:18 Last Admin: 01/19/17 01:18 Dose: 75 mls/hr Ketorolac Tromethamine (Toradol) 30 mg IVP Q6HR PRN PRN Reason: Pain (Moderate) Stop: 03/17/17 21:20 Lactulose (Cephulac) 20 gm PO BID PRN PRN Reason: Constipation Stop: 03/17/17 22:14 Levetiracetam (Keppra) 500 mg PO BID [facility] Stop: 03/18/17 08:59 Last Admin: 01/18/17 18:33 Dose: Not Given Miscellaneous (Fluticasone/Salmeterol [Advair 250-50 Diskus]) 1 each IH BID [facility] Stop: 03/18/17 08:59 Miscellaneous (Mag Hydrox/Al Hydrox/Simeth [Antacid Anti-Gas Liquid]) 5 ml PO BID [facility] Stop: 03/18/17 08:59 Multivitamins/Vitamin C (Theragran) 1 tab PO DAILY [facility] Stop: 03/18/17 08:59 Last Admin: 01/18/17 09:42 Dose: Not Given Olanzapine (Zyprexa) 10 mg PO HS [place] PRN Reason: Protocol Stop: 03/18/17 20:59 Ondansetron HCl (Zofran) 4 mg IV Q6H PRN PRN Reason: Nausea / Vomiting Stop: 03/17/17 21:18 Last Admin: 01/17/17 21:11 Dose: 4 mg Pantoprazole Sodium (Protonix) 40 mg IVP BID [facility] Stop: 03/19/17 08:59 Last Admin: 01/18/17 18:33 Dose: Not Given Tramadol HCl (Ultram) 50 mg PO BID [facility] Stop: 03/18/17 08:59 Last Admin: 01/18/17 18:34 Dose: Not Given General: Alert, Other (Confused) HEENT: Atraumatic Neck: Supple Cardiovascular: Regular rate Lungs: Clear to auscultation Abdomen: Bowel sounds, Soft Extremities: Other (No edema) Neurological: Other (Non ambulatory) Skin: Other (Warm and dry) Psych/Mental Status: Other (Confused) - Procedures Procedures: Procedures Procedure Code Date CLOSURE SKIN & SUBCUTANEOUS NEC 86.59 11/28/05 COLONOSCOPY 45.23 12/06/96 DIAGNOSTIC COLONOSCOPY 12253 12/06/96 DIAGNOSTIC SIGMOIDOSCOPY 63103 04/21/98 EGD DIAGNOSTIC BRUSH WASH 51697 06/10/16 ELECTROCARDIOGRAPH MONIT 89.54 12/10/95 HEMORRHOIDECTOMY 49.46 04/21/98 INSPECTION OF UPPER INTESTINAL TRACT, ENDO [id number] 06/10/16 LINEAR REP LID LACER 08.81 07/04/14 NEBULIZER THERAPY 93.94 12/10/95 REMOVE INT/EXT HEM 1 GROUP 44955 04/21/98 RIGID PROCTOSIGMOIDOSCOPY 48.23 04/21/98 RPR S/N/AX/GEN/TRNK2.6-7.5CM 75065 11/28/05 TETANUS TOXOID ADMINIST 99.38 07/04/14 Assessment/Plan - Problem List Patient Problems: All Active Problems Anemia (Acute) D64.9 Dizziness (Acute) R42 Hyposmolality and/or hyponatremia (Acute) E87.1 Labyrinthitis (Acute) H83.09 NAUSEA AND VOMITING (Acute 06/10/16) - Assessment Assessment: Patient is awake, calm, confused not oriented. Upper endoscopy done and shows esophagitis. Hgb down. Patient having regular bowel movements. Dx: SBO vs Ilium, MR, dementia, anemia, hyponatremia, coffee ground emesis. - Plan Plan: One unit of PRBC will be transfused and patient will be discharge.
[2017-01-19] MEDS: Multivitamin Tab PO SCH (08:37)
[2017-01-19] MEDS: Menthol/Zinc Oxide Oint 113gm Tube TP SCH ×3 (09:00→17:24)
--- NOTE | 2017-01-20 12:32 | Pathology Report ---
[id number] Collection date: 01/18/2017 Surgeon: Dr. Melina Scott Specimen Description: 1. Duodenum biopsy 2. Antrum biopsy 3. Esophageal biopsy Gross Description: Part I: Received in formalin is a single cook soft tissue fragment measuring 0.2 cm in greatest dimension. Totally submitted in one cassette labeled A. Gross Description: Part II: Received in formalin are two cook soft tissue fragments ranging from 0.1 to 0.2 cm in greatest dimension. Totally submitted in one cassette labeled B. Gross Description: Part III: Received in formalin is a single cook soft tissue fragment measuring 0.1 cm in greatest dimension. Totally submitted in one cassette labeled C. Microscopic Description: Part I: The histologic sections show benign duodenal mucosa with intact intestinal villi appreciated, showing no evidence for abnormality. Diagnosis: Part I: No evidence for celiac disease / Spr[place]. Microscopic Description: Part II: The histologic sections show benign gastric mucosa with mild chronic inflammation present consisting of scattered lymphocytes and plasma cells. The Giemsa stain shows no evidence for Helicobacter pylori. Diagnosis: Part II: 1. Mild chronic gastritis, antrum biopsy. 2. The Giemsa stain is negative for Helicobacter pylori. Microscopic Description: Part III: The histologic sections show partially ulcerated squamous mucosa with acute and chronic inflammation present consisting of neutrophils and lymphocytes. Reactive epithelial changes are seen within the squamous epithelium. The PAS stain shows no evidence for fungal organisms. The Alcian blue stain shows no significant abnormalities. Diagnosis: Part III: Esophageal ulcer with acute and chronic inflammation present (esophagitis). [facility]# [id number] [facility]
--- NOTE | 2017-02-07 19:57 | Discharge Summary ---
CHIEF COMPLAINT: ____ constipation. HISTORY OF PRESENT ILLNESS: This is the case of a 61-year-old white female who has history of mental retardation. The patient was brought to Emergency Room secondary to the patient was unable to evaluate. During ER evaluation, x-ray of the abdomen was done and the diagnosis was possible SBO versus ileus paralyticus. For this reason, the patient was hospitalized. HOSPITAL COURSE AND TREATMENT: When this patient was hospitalized in the medical surgical floor, she was started on IV normal saline. She was put on n.p.o. She was given lactulose and Fleet Enema. Also when GI was done and GI ____ upper endoscopy and colonoscopy and was found chronic gastritis. When this treatment and ____ after discussion with GI, it was considered the patient receive the maximum benefit of hospitalization and she can be sent back to senior care to continue care with primary care physician. Stripper Machine Operator on this case is GI. DISPOSITION: The patient is sent back to nursing facility to continue care. IMPRESSION: 1. Small bowel obstruction. 2. Anemia. 3. Hyponatremia. 4. Dementia. 5. Seizure disorder. JOB# [id number]
== END 2017-01-19 19:00 | disposition short-term general hospital (02) | DRG 381 ==
LOC: ER 12:07 → MSI 20:30
PROVIDERS: ADMIT General Practice; ATTEND General Practice
PROC: 0DB98ZX Excision of Duodenum, Via Natural or Artificial Opening Endoscopic, Diagnostic (ICD-10-PCS; principal; 2017-01-18)
PROC: 0DB68ZX Excision of Stomach, Via Natural or Artificial Opening Endoscopic, Diagnostic (ICD-10-PCS; 2017-01-18)
PROC: 0DB58ZX Excision of Esophagus, Via Natural or Artificial Opening Endoscopic, Diagnostic (ICD-10-PCS; 2017-01-18)
PROC: 30233N1 Transfusion of Nonautologous Red Blood Cells into Peripheral Vein, Percutaneous Approach (ICD-10-PCS; 2017-01-19)
DX: K22.10 Ulcer of esophagus without bleeding (principal); K56.60 Unspecified intestinal obstruction; F03.91 Unspecified dementia, unspecified severity, with behavioral disturbance; E87.1 Hypo-osmolality and hyponatremia; K56.0 Paralytic ileus; D64.9 Anemia, unspecified; G40.909 Epilepsy, unspecified, not intractable, without status epilepticus; F79 Unspecified intellectual disabilities; K29.80 Duodenitis without bleeding; Z88.8 Allergy status to other drugs, medicaments and biological substances
CPT/HCPCS: 36415-UA; 74000-TC; 74020-TC; 80053-TC; 81001-TC; 82150-TC; 83690-TC; 84443-TC; 85025-TC; 85610-TC; 86850-TC; 86870-TC; 86900-TC; 86901-TC; 86905-TC; 86922-TC; 88305-90; 88312-90; 88313-90; 93005; 96374; C9113; J1885; J2250; J2405; J7030; P9016; X6206; Z7512; Z7610